=== PATIENT | male | born 1995 | race Two or more races ===

== ENCOUNTER 2023-05-24 14:16 | Emergency (ER) | payer SELFPAY ==
[~2023-05-24] VITALS: Ht 180.3 cm; Wt 97.0 kg
[2023-05-24 14:20] VITALS: BP 155/96; PULSE 75; RESP 20; O2SAT 100
[2023-05-24 16:45] VITALS: TEMP 98.4
[2023-05-24] MEDS: ACETAMINOPHEN 325MG TABLET PO ONE (16:45)
[2023-05-24 17:38] LABS: CALCIUM 9.5 mg/dL (8.7-10.4); CARBON DIOXIDE 24 mEq/L (21-32); CHLORIDE 107 mEq/L (98-107); CREATININE 0.8 mg/dL (0.6-1.3); GLUCOSE 98 mg/dL (70-105); POTASSIUM 3.9 mEq/L (3.5-5.1); SODIUM 137 mEq/L (136-145); UREA NITROGEN BLOOD 12 mg/dL (9-23)
[2023-05-24] MEDS: TETANUS, DIPHTHERIA, PERTUSSIS VAC/PF 0.5ML (>10YR OLD) IM ONE (18:15)
== END 2023-05-24 20:29 | disposition home or self-care (01) ==
LOC: ER 14:16
DX: S00.03XA Contusion of scalp, initial encounter (principal); Z90.49 Acquired absence of other specified parts of digestive tract; X58.XXXA Exposure to other specified factors, initial encounter; Y93.89 Activity, other specified; Y92.89 Other specified places as the place of occurrence of the external cause; Y99.8 Other external cause status
CPT/HCPCS: 36415; 80048; 90471; 90715; 99285